=== PATIENT | female | born 1975 | race Caucasian/White ===

== ENCOUNTER 2017-05-08 12:11 | Emergency (ER) | payer OTHER ==
[2017-05-08 12:21] VITALS: TEMP 97.9; O2SAT 98
[2017-05-08] MEDS ORDERED: LET GEL TOPICAL 1 EA SYR TP ONE ×2 (12:27→12:44)
--- NOTE | 2017-05-08 12:44 | EDPHY ---
H & P Time Seen by Provider: 05/08/17 12:27 HPI/ROS: This patient complains of a scalp lesion versus tick behind the left ear on her scalp. She noticed over the past few days. She has associated mild neck ache described as muscular feeling 5/10 over the same duration of time. Finally , she reports a sore throat of moderate intensity also for the past 3-5 days. She wonders about a tick to her scalp because they were in [place] 3 weeks ago hiking and had removal several ticks from skin while there. The patient has not been able to clearly visualize the affected the lesion of her scalp so she is uncertain if it is a tick or not. ROS: No fevers or chills. No other constitutional symptoms HEENT: No nasal congestion. She still tolerating p.o. intake despite her sore throat. She has no ear pain. Neuro: She reports mild intermittent headaches bilateral frontal and occipital in location similar to prior headaches. She has noticed these over the past 5 days but does not have 1 now. No confusion. No numbness tingling focal weakness. Pulmonary: No cough Cardiovascular: No lightheadedness. Integumentary: No skin rash GI: No nausea or vomiting. 7 point ROS is otherwise negative Past Medical/Surgical History: Otherwise healthy Smoking Status: Never smoked Physical Exam: Physical Exam Vital signs are normal. General: No acute distress HEENT: Nose: Clear bilaterally. No sinus tenderness to percussion. Ears: External canals and tympanic membranes are clear with no erythema or abnormal findings bilaterally. Oropharynx: Mild erythema. No exudates. No dysphonia. No drooling or stridor. The patient has a mildly tender papule 5 x 5 mm in size to left parietal region few cm behind the left earlobe. Eyes: Pupils equal and react to light. Extraocular motions are intact. Neck: Supple with no meningismus. No lymphadenopathy Lungs: Clear to auscultation bilaterally with no rales, rhonchi or wheeze. No respiratory distress. Cardiac: Regular rate and rhythm with no murmur gallop or rub Skin: No rash or pallor. Neuro: Alert with no focal deficits noted. Initial differential diagnosis: Viral pharyngitis, strep pharyngitis, skin lesion, ingrown hair, furuncle Constitutional: Initial Vital Signs Temperature (C) 36.6 C 05/08/17 12:15 Heart Rate 88 07/01/17 12:15 Respiratory Rate 16 05/08/17 12:15 Blood Pressure 157/122 H 05/08/17 12:15 O2 Sat (%) 98 05/08/17 12:15 O2 Delivery Mode Room Air Allergies/Adverse Reactions: No Known Allergies Allergy (Verified 05/08/17 12:14) Home Medications: Medication Instructions Recorded Doxycycline Hyclate [Vibramycin 100 mg PO BID #14 cap 05/08/17 100 MG (*)] MDM/Departure - MDM Diagnostics: Rapid strep is negative Procedures: Simple I&D: After verbal consent and let gel anesthesia, chlorhexidine scrub A' s an 18 gauge needle to the small scalp lesion with minimal discharge with massage sent for culture. Patient tolerated the procedure well. Hemostasis achieved at thereafter with gauze with pressure. There were no complications. Medications Given: Discontinued Medications Tetracaine/Epinephrine/Lidocaine (Let Gel Topical) 1 ea TP EDNOW ONE Stop: 05/08/17 12:28 Last Admin: 05/08/17 12:50 Dose: 1 ea ED Course/Re-evaluation: Discussion: Patient with small papular lesions or scalp she attributes this to a potential tick bite while in [place] in area does have Lyme though, no target lesions or other concerning findings for Lyme currently. Will cover her local scalp lesion with doxycycline antibiotic counseled regarding this. Cultures pending to rule out MR MCBRIDE. She appears clinically well without evidence of systemic illness. - Depart Disposition: Home, Routine, Self-Care Clinical Impression: Furuncle, Viral pharyngitis Condition: Good Instructions: Pharyngitis (ED), Furunculosis and Carbunculosis (ED) Additional Instructions: Diagnosis: 1. Scalp furuncle 2. Viral pharyngitis Plan: Ibuprofen Tylenol for discomfort as needed Doxycycline antibiotic Yogurt and/or probiotic while on doxycycline to prevent diarrhea Wear sunscreen and hat while on this antibiotic to prevent sunburn Return for any significant worsening despite treatment plan Please recheck your blood pressure and track that over the next few weeks. Discuss treatment if needed with Dr Pimentel. BP should be < 120/80 Prescriptions: Doxycycline Hyclate [Vibramycin 100 MG (*)] 100 mg PO BID #14 cap Referrals: YANICK PIMENTEL [Primary Care Provider] - As per Instructions
[2017-05-08 13:17] VITALS: BP 170/112
[2017-05-08 13:59] VITALS: PULSE 85; RESP 14
== END 2017-05-08 13:57 | disposition home or self-care (01) ==
LOC: CED 12:11
DX: L02.821 Furuncle of head [any part, except face] (principal); J02.8 Acute pharyngitis due to other specified organisms; B97.89 Other viral agents as the cause of diseases classified elsewhere
CPT/HCPCS: 87880-PO